=== PATIENT | female | born 1970 | race African-American/Black ===

== ENCOUNTER 2019-07-31 06:05 | Day surgery (SDC) | payer OTHER ==
[2019-07-31] VITALS (12 sets, daily range): BP systolic 106–151; BP diastolic 56–82
[~2019-07-31 06:05] MED LIST: ASA OR; ASPIR-8181 MG OR; ASPIRIN81 MG PO; B12 FAST DIS5000 MCG PO; BABY ASPIRIN81 MG OR; CYCLOBENZAPR5 MG PO; FLEXERIL OR; FLEXERIL5 MG PO; GABAPENTIN100 MG PO; IRON325 M1 PO; IRON325 MG OR; LORTAB 5 OR; LORTAB5 PO; MET12.5TAB OR; METOPROL TAR25 MG PO; MOTRIN400 MG OR; NAPROSYN500 MG OR; NAPROXEN500 MG OR; NO HOME MEDS; NO MEDS; PAXIL20 MG OR; PAXIL30 MG OR; PAXIL30 MG PO; PAXIL40 MG PO; TAMOXIFEN CITRA10 MG PO; TOPAMAX SPR15 M1 PO; VENLAFAXINE H37.5 MG PO; VITAMIN E400 UNIT PO; [UNRECOGNIZED DRUG - OTHER] PO
[2019-07-31] MEDS ORDERED: LORCET HD 10-321 TAB PO (07:05)
--- NOTE | 2019-07-31 10:00 | NUR ---
PT ADMITTED FROM OR IN STABLE CONDITION, ALERT AND ORIENTEDX3. AFEBRILE, LR FLUIDS INFUSING. INCISION SITE INTACT, NO SWELLING BLEEDING OR HEMATOMA PRESENT. O2 SATS 100% ROOM AIR. SEE PROCESS INTERVENTIONS FOR FULL ASSESSMENT.
--- NOTE | 2019-07-31 12:00 | NUR ---
PT RESTING IN BED SLEEPING, ALL VSS, ICE PACK ROTATED OFF Q20 MINS. NO SWELLING, BLEEDING OR HEMATOMA NOTED AT INCISION SITE. WILL CONTINUE TO MONITOR.
--- NOTE | 2019-07-31 12:55 | NUR ---
15MG TORADOL IV FOR PAIN GIVEN
--- NOTE | 2019-07-31 14:00 | NUR ---
PT UP TO BEDSIDE COMMODE, AMBULATING WELL.
--- NOTE | 2019-07-31 16:00 | NUR ---
PT RESTING IN BED EATING FULL LIQUID DIET, SOUP. NO SWELLING BLEEDING AT INCISION SITE NOTED.
--- NOTE | 2019-07-31 18:15 | NUR ---
15MG TORADOL IV FOR PAIN GIVEN.
--- NOTE | 2019-07-31 18:30 | NUR ---
FLEXARIL 5MG ORAL TAB AT PT REQUEST FOR MUSCLE SPASM.
--- NOTE | 2019-07-31 18:45 | NUR ---
RECEIVED REPORT FROM TIBURCIO CHACON.
--- NOTE | 2019-07-31 19:10 | NUR ---
PT AAOX3, NO DISTRESS NOTED. INCISION CLEAN AND DRY, ICE PACK IN PLACE. PT TAKING PO FLUIDS WELL, VOIDING WITHOUT DIFFICULTY. NO NEEDS AT THIS TIME. CALL BETANCOURT IN REACH.
--- NOTE | 2019-07-31 20:00 | NUR ---
PT AAOX3, NECK INCISION CLEAN, DRY, INTACT, PT RELATED PAIN IMPROVED AFTER TORADOL. PT DRINKING AND RELATED SHE WAS VOIDING. NO NEEDS AT THIS TIME. CALL BETANCOURT IN REACH.
--- NOTE | 2019-07-31 22:00 | NUR ---
PT WATCHING TV. NO RESP DISTRESS NOTED. NO NEEDS AT THIS TIME. CALL BETANCOURT IN REACH.
[2019-08-01] VITALS: BP 114/69
--- NOTE | 2019-08-01 | NUR ---
PT AWAKE AND ALERT. PROVIDED JELLO. PT ABLE TO SWALLOW WITHOUT DIFFICULTY. ICE BAG FILLED, ENCOURAGED PT TO PLACE ON INCISION, 20 MIN ON, 20 MIN OFF. CALL BETANCOURT IN REACH.
[2019-08-01 02:00] VITALS: BP 104/49
--- NOTE | 2019-08-01 02:00 | NUR ---
PT WITH EYES CLOSED. NO RESP DISTRESS NOTED. SA02 100% CALL BETANCOURT IN REACH.
[2019-08-01 04:00] VITALS: BP 107/58
--- NOTE | 2019-08-01 04:00 | NUR ---
PT WITH EYES CLOSED, NO RESP DISTRESS NOTED. SA02 100% CALL BETANCOURT IN REACH.
[2019-08-01 06:00] VITALS: BP 105/44
--- NOTE | 2019-08-01 06:00 | NUR ---
PT WITH EYES CLOSED, RESPONDED TO VERBAL STIMULI. DENIED DIFFICULTY SWALLOWING. SA02 100%. SCHEDULED TORADOL 15MG IV GIVEN PAIN 10/05. CALL BETANCOURT IN REACH.
--- NOTE | 2019-08-01 06:45 | NUR ---
REPORT RECEIVED FROM JACK CHACON. CARE ASSUMED.
--- NOTE | 2019-08-01 06:49 | NUR ---
REPORT TO LEE CHACON.
--- NOTE | 2019-08-01 07:20 | NUR ---
PT RESTING IN BED WITH EYES CLOSED. PT AROUSES TO VERBAL STIMULI. PT IS ALERT AND ORIENTED X3. SHIFT ASSESSMENT COMPLETED AT THIS TIME. IV PATENT X1. INCISION C/D/I. ICE PACK PROVIDED. PT REQUESTING OATMEAL FOR BREAKFAST. DIET ADVANCED. CALL LIGHT IN REACH. WILL CONTINUE TO MONITOR.
--- NOTE | 2019-08-01 07:40 | NUR ---
PT SET UP FOR AM MEAL
[2019-08-01 08:00] VITALS: BP 104/42
--- NOTE | 2019-08-01 08:05 | NUR ---
DR LOPEZ AT BEDSIDE AT THIS TIME,
[2019-08-01 09:16] VITALS: BP 105/44
--- NOTE | 2019-08-01 09:38 | NUR ---
IV site discontinued, cath intact. No edema , no redness, voices no discomfort.
--- NOTE | 2019-08-01 09:40 | NUR ---
DISCHARGE INSTRUCTIONS REVIEWED WITH PATIENT. PATIENT VERBALIZED UNDERSTANDING.
--- NOTE | 2019-08-01 09:45 | NUR ---
Discharge instructions given. Patient verbalizes understanding of same. Discharged in stable condition via Wheelchair to Home with family. All belongings sent with pt.
== END 2019-08-01 09:40 | disposition home or self-care (01) ==
LOC: ICU 06:05 → ORM 06:05 → ICU 09:00 → ORM 08-01 09:40
PROVIDERS: ATTEND Surgery
DX: D34 Benign neoplasm of thyroid gland (principal); E04.2 Nontoxic multinodular goiter; I10 Essential (primary) hypertension; Z11.59 Encounter for screening for other viral diseases
CPT/HCPCS: J0131; J1100